=== PATIENT | male | born 1970 | race Caucasian/White ===

== ENCOUNTER 2016-06-22 09:15 | Day surgery (SDC) | payer OTHER ==
[~2016-06-22 09:15] MED LIST: LEVOTHYROXINE0.3 M1 PO; PROTONIX 40MG T40 MG PO; RANITIDINE 150150 MG PO; [UNRECOGNIZED DRUG - OTHER] PO
--- NOTE | 2016-06-22 10:03 | Operative Note ---
Upper GI Endoscopy Procedure date: 06/22/16 Date of : 68 Procedure:Upper GI Endoscopy Esophagogastroduodenoscopy with cold biopsies and TTS balloon dilation Indications: Mr. Hannah is a 46-year-old gentleman who is here for diagnostic upper endoscopy. He has daily nausea in the mornings with near vomiting. He reports some food regurgitation. He reports no significant heartburn or reflux but does have some occasional pyrosis. He does note gassiness and moderate belching. He has some dysphagia to solid foods but reports no globus sensation. He reports no early satiety. He has occasional indigestion. He also has irregular bowel function with both constipation followed by diarrhea. He reports no abdominal pain, melena or hematochezia. He reports no family history of stomach or colon cancer. Performing Provider: Yoel Comer MD Referring Provider: Linda Guzmán M.D. Sedation: Midazolam 9mg, fentanyl 200 mg Procedure: Prior to the procedure, a history and physical exam was performed, and patients medications and allergies were reviewed. The risks and benefits of the procedure and the sedation options and risks were discussed with the patient. All questions were answered and informed consent was obtained. The patient was brought to the procedure room. Patient identification and proposed procedure were verified by the physician and the nurse. The patient was placed in a left lateral decubitus position and the scope was passed under direct vision. Throughout the procedure, the patient's blood pressure, pulse, and oxygen saturations were monitored continuously. The endoscope was introduced through the mouth, and advanced to the second part of duodenum. The upper GI endoscopy was accomplished without difficulty. The patient tolerated the procedure well. Findings: The scope was passed directly into the upper esophagus and advanced to the third portion of the duodenum. The post bulbar duodenum and duodenal bulb were normal with normal mucosa and conniventes. The scope was withdrawn through a normal duodenal bulb and pylorus into the stomach. There was some mild linear erythema of the antrum with bile reflux. The remainder of the antrum, body and fundus of the stomach were grossly normal. Upon retroflexion there was a 2 cm small hiatal hernia. 2 biopsies were taken in the antrum and along the lesser curvature for histology and/or CLOtest. The scope was then withdrawn into the esophagus. There was a distal esophageal ring/Schatzki's ring. There were tertiary contractions and mild esophageal dysmotility. The entire esophagus was dilated to 60 [place]/ 20 mm with a TTS hydrostatic balloon. The Schatzki's ring was approximately 20 mm with minimal dilation at this site but there was some cricopharyngeal spasm. There was also a medium-sized Zenker's diverticulum in the posterior pharynx. Immediate complications: None EBL (ml): 0 Impression: 1. Zenker's diverticulum with some cricopharyngeal/UES spasm 2. Nonerosive gastroesophageal reflux disease with mild esophageal dysmotility and small 2 cm hiatal hernia 3. Mild linear reactive gastritis Recommendations: I do feel that the patient most likely has some functional dyspepsia and obstipation related symptoms. I would encourage dietary measures, fiber bowel regimen and promotility therapy. I will follow-up the biopsies. at 100
[2016-06-22 14:45] VITALS: BP 127/76
== END 2016-06-22 11:00 | disposition home or self-care (01) ==
LOC: SDC 09:15
PROVIDERS: Internal Medicine Gastroenterology
PROC: 0D758ZZ Dilation of Esophagus, Via Natural or Artificial Opening Endoscopic (ICD-10-PCS; 2016-06-22)
PROC: 0DB78ZX Excision of Stomach, Pylorus, Via Natural or Artificial Opening Endoscopic, Diagnostic (ICD-10-PCS; principal; 2016-06-22 10:00)
DX: K21.9 Gastro-esophageal reflux disease without esophagitis (principal); K44.9 Diaphragmatic hernia without obstruction or gangrene; K22.5 Diverticulum of esophagus, acquired; J39.2 Other diseases of pharynx; K29.60 Other gastritis without bleeding; K22.2 Esophageal obstruction
CPT/HCPCS: C1726